=== PATIENT | female | born 1990 | race Caucasian/White ===

== ENCOUNTER 2020-10-31 16:52 | Inpatient (IN) | payer OTHER ==
[~2020-10-31] VITALS: Ht 165.1 cm; Wt 90.7 kg
[2020-10-31 18:13] LABS: HEMOGLOBIN 14.2 gm/dl (12.3-15.3); RED BLOOD COUNT 4.69 M/UL (4.00-5.10); WHITE BLOOD COUNT 16.4 K/UL (4.5-11.0)
[2020-11-01] MEDS ORDERED: PRENATAL VITAM1 EAC3 PO (05:40)
[2020-11-01] MEDS ORDERED: COLACE100 MG PO (23:39)
[2020-11-01] MEDS ORDERED: PERCOCET 5/325 T1 EA PO (23:39)
[2020-11-01] MEDS ORDERED: IBUPROFEN800 MG PO (23:39)
[2020-11-02 10:28] LABS: HEMOGLOBIN 11.6 gm/dl (12.3-15.3)
== END 2020-11-03 18:52 | disposition home or self-care (01) | DRG 788 ==
LOC: GENOP 16:52 → OB 17:26 → GENOP 17:26 → OB 17:28
PROVIDERS: Obstetrics & Gynecology; ADMIT Obstetrics & Gynecology
PROC: 10D00Z1 Extraction of Products of Conception, Low, Open Approach (ICD-10-PCS; principal; 2020-11-02)
DX: O62.1 Secondary uterine inertia (principal); O62.0 Primary inadequate contractions; Z3A.39 39 weeks gestation of pregnancy; Z37.0 Single live birth
CPT/HCPCS: 36415; 81001; 85014; 85018; 85025; 85461; 86850; 86900; 86901; C9113; J0595; J0690; J1100; J1885; J2001; J2210; J2274; J2300; J2405; J2590; J2790; J2795; J3010; J7120; U0002